=== PATIENT | male | born 1960 | race Caucasian/White ===

== ENCOUNTER 2018-09-28 09:46 | Day surgery (SDC) | payer OTHER ==
[~2018-09-28] VITALS: Ht 172.7 cm; Wt 83.9 kg
[2018-09-28] VITALS (8 sets, daily range): BP systolic 112–151; BP diastolic 74–87; PULSE 74–84; RESP 15–21; Ht 172.7 cm; Wt 83.9 kg
[~2018-09-28 09:46] MED LIST: ALLO100T64 PO
--- NOTE | 2018-09-28 12:16 | PREAC ---
Date/Time of Note Date/Time of Note DATE: 09/28/18 TIME: 12:14 Anesthesia Eval and Record Evaluation Time Pre-Procedure Interview DATE: 09/28/18 TIME: 12:14 Age 58 Sex male NPO: 8 hrs Preoperative diagnosis Screening Planned procedure Colonoscopy Past Medical History Past Medical History: Includes Musculoskeletal: Other (Gout) Surgery & Anesthesia Issues No known issue Meds Anticoagulation: No Beta Hannah within 24 hr: No Reason Beta Hannah not given: Pt. not on B-Hannah Reported Medications Allopurinol* (Zyloprim*) 100 Mg Tablet, 100 MG PO DAILY 08/30/13 Meds reviewed: Yes Allergies Coded Allergies: No Known Allergy (Unverified , 07/12/13) Allergies Reviewed: Yes Labs/Studies Labs Reviewed: Reviewed by anesthesiologist test: N/A Pre-procedure Exam Last vitals Vital Signs Date Temp Pulse Resp B/P (MAP) Pulse Ox O2 O2 Flow FiO2 Time Delivery Rate 09/28/18 97.6 77 18 125/81 98 Room Air 12:09 (96) Airway: Adequate mouth opening Mallampati: Mallampati II Teeth: Normal Lung: Normal Heart: Normal ASA Physical Status ASA physical status: 2 Emergency: None Planned Anesthetic General/MAC: MAC Pre-operative Attestations Prior to commencing anesthesia and surgery, the patient was re-evaluated, there was verification of: *The patient's identity *The results of appropriate recent lab work and preoperative vital signs *The above evaluation not changing prior to induction *Anesthetic plan, risk benefits, alternative and complications discussed with patient/family; questions answered; patient/family understands, accepts and wishes to proceed. FREDI JACQUES MD Sep 28, 2018 12:16
[2018-09-28] MEDS ORDERED: PROPOFOL 40 ML ONE (12:18)
--- NOTE | 2018-09-28 12:46 | PAC ---
Date/Time of Note Date/Time of Note DATE: 09/28/18 TIME: 12:46 Post-Anesthesia Notes Post-Anesthesia Note Last documented vital signs Vital Signs Date Temp Pulse Resp B/P (MAP) Pulse Ox O2 O2 Flow FiO2 Time Delivery Rate 09/28/18 97.6 77 18 125/81 98 Room Air 12:09 (96) Activity: WNL Respiratory function: WNL Cardiovascular function: WNL Mental status: Baseline Pain reasonably controlled: Yes Hydration appropriate: Yes Nausea/Vomiting absent: Yes FREDI JACQUES MD Sep 28, 2018 12:46
== END 2018-09-28 15:42 | disposition home or self-care (01) ==
LOC: GIL 09:46
PROVIDERS: ATTEND Internal Medicine Gastroenterology
DX: Z12.11 Encounter for screening for malignant neoplasm of colon (principal); K64.8 Other hemorrhoids
CPT/HCPCS: 45378; Z7610